=== PATIENT | male | born 2000 | race Hispanic/Latino ===

== ENCOUNTER 2023-10-27 17:29 | Emergency (ER) | payer SELFPAY ==
[2023-10-27 17:37] VITALS: BP 132/89
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
[2023-10-27 19:35] VITALS: BP 144/93
== END 2023-10-27 19:42 | disposition home or self-care (01) ==
LOC: EMR 17:29
PROVIDERS: EMERGENCY PHYSICIAN Student in an Organized Health Care Education/Training Program
DX: S40.022A Contusion of left upper arm, initial encounter (principal); V89.2XXA Person injured in unspecified motor-vehicle accident, traffic, initial encounter; Y92.410 Unspecified street and highway as the place of occurrence of the external cause
CPT/HCPCS: 99283; 73060